=== PATIENT | female | born 1935 | race Caucasian/White ===

== ENCOUNTER → 2021-02-13 | Outpatient (CLI) | payer OTHER ==
[~2021-02-13] MED LIST: AMLODIPINE BESYL5 MG; APAP500 PO; CALCIUM 600 +1 EAC1 PO; FAMOTIDINE10 MG PO; HYDROCHLOROTHIA25 M2 PO; IRON325 M1 PO; KLOR-CON M2020 MEQ PO; LEVOTHYROXINE0.05 MG PO; LOPRESSOR50 PO; NORVASC5 M1 PO; PAXIL10 MG PO; PLAVIX 75 MG TA75 M1 PO; PROAIR HFA8.5 GM INH; SYMBICORT160 MCG/4. INH; TIZANIDINE HCL 22 M1 PO; TRAMADOL 50 MG50 MG PO; VITAMIN D350 MC3 PO; VITAMIN E100 UNI2 PO; VITAMIN E1000 UNIT PO; ZOCOR20 MG PO
== END ==
LOC: LAB 10:29
PROVIDERS: ATTEND Student in an Organized Health Care Education/Training Program
DX: Z01.812 Encounter for preprocedural laboratory examination (principal); Z20.822 Contact with and (suspected) exposure to COVID-19

== ENCOUNTER → 2021-02-18 | Outpatient (CLI) | payer OTHER ==
[~2021-02-18] VITALS: Ht 157.5 cm; Wt 54.4 kg
--- NOTE | 2021-02-21 12:10 | PATH ---
[facility] [address] [place] [address] PATHOLOGY RPT PROCEDURE Name: DEWEY OLGUIN Room #: REG URIEL Tj#: [id number] Admission: 02/18/21 Date of : 39 Discharge: Report #: [id number] Path Case #: [id number] [facility] Accession Number: [id number] . 01 Material submitted: . PART A: gastrointestinal site - GASTRIC BIOPSY R/O H. PYLORI PART B: colon - TRANSVERSE COLON POLYP. Modifiers: transverse . 01 Clinical history: . ESOPHAGOGASTRODUODENOSCOPY, COLONOSCOPY ANEMIA, COUGH ESOPHAGITIS, GASTRIC ULCER . 02 Diagnosis: A. Gastric, biopsy: - Gastric antral mucosa without significant histopathological abnormality. - An H. pylori immunohistochemical is performed and is negative for Helicobacter-like organisms . B. Transverse colon polyp, polypectomy: - Tubular adenoma. - Negative for high-grade dysplasia or malignancy. (ANK:karan; 02/20/2021) QTP 02/20/2021 1139 Local . 02 Electronically signed: . Julissa Shelton MD, Pathologist NPI- [id number] . 01 Gross description: . A. The specimen is received in formalin, labeled "Dewey Olguin, gastric biopsy, R/O H. pylori". Received are four segments of pale fregoso tissue ranging in size from 0.2-0.4 cm in maximum dimensions. The specimen is submitted entirely in cassette A1. . B. The specimen is received in formalin, labeled "Dewey Olguin, transverse colon polyp". Received are four segments of pale fregoso tissue ranging in size from 0.4-0.5 cm in maximum dimensions. The specimen is submitted entirely in cassette B1. (CAA; 02/19/2021) QAC/QA 02/19/2021 1022 Local . 02 Pathologist provided ICD-10: D12.3, D64.9, R05.9 . 02 CPT . 484113, 751436, [id number] [address] [address] PATHOLOGY RPT PROCEDURE Name: MEHNAZ OLGUINMIC Room #: REG CL Annie.#: [id number] Admission: 02/18/21 Date of : 39 Discharge: Report #: [id number] Path Case #: [id number] Specimen Comment: A courtesy copy of this report has been sent to [phone] Specimen Comment: [id number] Specimen Comment: Report sent to / DR LANDIS Specimen Comment: A duplicate report has been generated due to demographic updates. Performed at: [address], [place] [id number] MD Jacob Pierre MD Phone: [phone] Performed at: [address] [id number] MD Julissa Shelton MD Phone: [phone]
== END | disposition home or self-care (01) ==
LOC: GI 10:00
PROVIDERS: ATTEND Internal Medicine
DX: D50.9 Iron deficiency anemia, unspecified (principal); K92.1 Melena; D12.3 Benign neoplasm of transverse colon; K57.30 Diverticulosis of large intestine without perforation or abscess without bleeding; K44.9 Diaphragmatic hernia without obstruction or gangrene; K25.9 Gastric ulcer, unspecified as acute or chronic, without hemorrhage or perforation; I10 Essential (primary) hypertension; E78.5 Hyperlipidemia, unspecified; K21.9 Gastro-esophageal reflux disease without esophagitis; J45.909 Unspecified asthma, uncomplicated; Z98.890 Other specified postprocedural states; Z79.899 Other long term (current) drug therapy; Z86.73 Personal history of transient ischemic attack (TIA), and cerebral infarction without residual deficits; Z96.651 Presence of right artificial knee joint; Z90.49 Acquired absence of other specified parts of digestive tract
CPT/HCPCS: 62110; 62900